=== PATIENT | male | born 1990 | race African-American/Black ===

== ENCOUNTER 2018-09-27 00:10 | Emergency (ER) | payer SELFPAY ==
[2018-09-27 00:56] VITALS: BP 128/71; PULSE 118; TEMP 97.9; BMI 29.9
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
[2018-09-27] MEDS ORDERED: ACETAMINOPHEN 325 MG TABLET (FP) PO ONE (01:53)
[2018-09-27] MEDS ORDERED: ACETAMINOPHEN 325 MG TABLET (FP) ONE (03:02)
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
== END 2018-09-27 04:47 | disposition home or self-care (01) ==
LOC: JER 00:10
PROC: 0HQ1XZZ Repair Face Skin, External Approach (ICD-10-PCS; principal; 2018-09-27)
DX: S01.21XA Laceration without foreign body of nose, initial encounter (principal); M54.6 Pain in thoracic spine; X99.1XXA Assault by knife, initial encounter; Y93.89 Activity, other specified; Y92.89 Other specified places as the place of occurrence of the external cause; F41.9 Anxiety disorder, unspecified
CPT/HCPCS: 70450-TC; 72070-TC-FY; 99282-25